=== PATIENT | female | born 1970 | race Caucasian/White ===

== ENCOUNTER 2016-12-09 15:01 | Outpatient (CLI) | payer OTHER ==
[2016-12-09 15:53] LABS: eGFR (African) > 60; eGFR (Non-African) > 60
== END 2016-12-09 15:10 ==
LOC: LAB 15:01
PROVIDERS: ATTEND Family Medicine
DX: M25.561 Pain in right knee (principal); E78.5 Hyperlipidemia, unspecified
CPT/HCPCS: 36415; 80053; 80061

== ENCOUNTER 2017-01-09 08:44 | Outpatient (CLI) | payer OTHER ==
--- NOTE | 2017-01-09 18:19 | Diagnostic Imaging Report ---
[facility] [address] [facility] [address] [place] [id number]. [id number] Report Submission Date: Jan 09, 2017 5:36:39 PM [employer] Patient Study Name: ROMANA DINH Date: Jan 09, 2017 8:50:58 AM [employer] Modality Type: MR Gender: F Description: MRI LOW EXT JNT W/O CONTRAST : 66 Institution: [facility] Physician: TRU SMITH Magnetic resonance imaging of the right knee without contrast History: Central knee pain and popping with sensation of instability Findings: Multiplanar magnetic resonance imaging of the right knee is performed without contrast. No comparisons are available. In the patellofemoral compartment, the articular cartilage, patellar retinacula , patellar tendon, and quadriceps tendon are intact. Trace joint effusion is observed. Bone marrow signal is normal. In the medial compartment, the medial meniscus, articular cartilage, and medial collateral ligament are intact. The anterior and posterior cruciate ligaments are intact. In the lateral compartment, the lateral meniscus, articular cartilage, and lateral collateral ligament complex are intact. Impression: Normal. Electronically signed on Jan 09, 2017 5:36:39 PM [employer] by: Demar SARGENT
== END 2017-01-09 08:49 | disposition home or self-care (01) ==
LOC: RAD 08:44
PROVIDERS: ATTEND Family Medicine
DX: M25.561 Pain in right knee (principal)
CPT/HCPCS: 73721

== ENCOUNTER 2017-07-07 10:27 | Outpatient (CLI) | payer OTHER | END 2017-07-07 10:30 | LOC: LABRHC 10:27 | PROVIDERS: ATTEND Family Medicine | DX: Z01.419 Encounter for gynecological examination (general) (routine) without abnormal findings (principal) | CPT/HCPCS: 88148; G0143 ==